=== PATIENT | male | born 1940 | race Caucasian/White ===

== ENCOUNTER → 2021-05-14 15:43 | Outpatient (CLI) | payer MEDICARE, SELFPAY ==
--- NOTE | 2021-05-14 15:58 | DI.RAD.S_ITS ---
PROCEDURE: XR KUB INDICATIONS: kidney stone TECHNIQUE: One view of the abdomen acquired. COMPARISON: None. FINDINGS: Surgical changes and devices: None. Bowel: Bowel gas pattern is normal. Soft tissues: Visualized solid organ contours appear normal in size. Bilateral dominant calcifications are seen, which are incompletely characterized. Multiple surgical clips projected over the inferior pelvis. Bones: No suspicious bony lesions. IMPRESSION: Bilateral abdominal calcification are present and cannot be further localized. If indicated, CT KUB could be performed for further assessment. Dictated by: Navin MEZA Interpreted: Mirza Mcneil MD on 05/14/2021 at 17:03 Transcribed by: DEMETRICE on 05/14/2021 at 17:04 Approved by: Mirza Mcneil M.D. on 05/14/2021 at 19:33
[2021-05-14 17:44] LABS: Blood Urea Nitrogen 16 mg/dL (9-20); Calcium 9.1 mg/dL (8.4-10.2); Carbon Dioxide 29 mmol/L (22-32); Chloride 105 mmol/L (98-107); Estimated Glomerular Filt Rate > 60.0 mL/min (>60); Glucose 125 mg/dL (80-110); HEMOLYSIS < 15 (0-50); Potassium 3.6 mmol/L (3.4-5.1); Sodium 142 mmol/L (137-145)
[2021-05-14 18:18] LABS: Prostate Specific Antigen < 0.064 ng/mL (0.10-4.00)
== END ==
PROVIDERS: PCP Internal Medicine; Referring Provider Specialist; Visit Provider Specialist
DX: N20.0 Calculus of kidney (principal); N20.1 Calculus of ureter; Z01.812 Encounter for preprocedural laboratory examination; R31.0 Gross hematuria; M54.50 Low back pain, unspecified
CPT/HCPCS: 36415; 51798; 74018; 80048; 81002; 84153; 99214

== ENCOUNTER → 2021-05-29 15:34 | Outpatient (CLI) | payer MEDICARE, SELFPAY ==
[2021-05-29 19:22] LABS: COVID19 -Nasal RAPID Negative (Negative)
== END ==
PROVIDERS: PCP Internal Medicine; Visit Provider Specialist
DX: Z20.822 Contact with and (suspected) exposure to COVID-19 (principal)
CPT/HCPCS: 87635; C9803

== ENCOUNTER 2021-05-30 08:16 | Day surgery (SDC) | payer MEDICARE, SELFPAY ==
[2021-05-29 09:48] VITALS: BMI 29.7
[2021-05-30] VITALS (8 sets, daily range): BP systolic 149–162; BP diastolic 83–89; PULSE 61–72; RESP 12–16; TEMP 36.6–37.3; O2SAT 92–98; BMI 29.7
--- NOTE | 2021-05-30 08:42 | PM.PREOP ---
Pre-operative Note COVID-19 COVID-19 status: Negative Result date/Date tested (Pos, Neg/Pending): 05/29/21 Interval Note History & Physical reviewed/Exam performed by Physician: Yes Changes to H&P: No
[2021-05-30] MEDS: LACTATED RINGERS 1,000 ML 42 ML IV (08:51)
[2021-05-30] MEDS: CIPROFLOXACIN 400 MG/200 ML PIGGYBACK 200 MG IV (09:50)
--- NOTE | 2021-05-30 09:58 | SUR.OPER ---
Supine on eswl BED. Patient [facility] eswl table [facility] head on pillow, arms positioned at patient's side. Legs are straight and feet uncrossed.
--- NOTE | 2021-05-30 10:53 | SUR.PHASEI ---
Received to PACU after general anesthesia. Airway patent, self maintained. Report received from Dr Eduardo and PRISCILA Hung. Pt has a pacemaker. Magnet was not used. Pacemaker does not need to be interrogated per Dr Eduardo. No paced beats noted. See rhythm strips.
--- NOTE | 2021-05-30 10:54 | PM.OP.1 ---
Operative Date/Time/Diagnoses Date of procedure: 05/30/21 Time of procedure: 10:54 Pre-op diagnosis: 1. 1.5 cm left renal pelvic calculus. 2. Left renal colic. 3. Intermittent gross hematuria. Post-op diagnosis: same Procedure & Clinicians Procedure: 1. Cystoscopy/placement left ureteral stent (7 Djiboutian by 22-32 cm multi-length). 2. Left extracorporeal shockwave lithotripsy (maximal power level 7.0 times 1800 shocks). Same procedure as scheduled: Yes Indications: 1. 1.5 cm left renal pelvic calculus. 2. Intermittent left renal colic. 3. Intermittent gross hematuria. Surgeon: Izabela Andrade Click Yes if Unassisted: Yes Anesthesia Type: General Operative Notes Findings: 1. Urethra-normal caliber without annular stricture or lesion. 2. External sphincter coapted with normal overlying urothelium. 3. Prostate-surgically absent. 4. Bladder-1+ trabeculation. Normal ureteral orifices bilaterally. Closure Type: not applicable Specimen(s): none sent Applied: other (Seven Djiboutian by 22-32 cm multi-length stent) Estimated Blood Loss (mL): 0 Blood products transfused: none Procedure in detail: Patient was positioned supine was administered general anesthesia. He was then repositioned semi lithotomy and the lower abdomen, genitalia, and groin were then prepped and draped in sterile fashion. The 22 Djiboutian panendoscope was then passed lower urinary tract with the findings as described above. A 0.35 hybrid guidewire was then advanced in left collecting system under direct and fluoroscopic guidance. Over this a 7 Djiboutian by 22-32 cm multi-length stent was selected and advanced over the wire, again under direct and fluoroscopic guidance. A RETRIEVAL LINE WAS LEFT ATTACHED. Patient was then repositioned supine and the above-described index calculus was localized in the X, Y, and Z planes. Lithotripsy was then commenced at minimal power level for 200 shocks. A 2 minute pause was then conducted. Lithotripsy was then resumed and the power level was gradually increased to a maximum of 7.0. Real localization was performed numerous times throughout the case as indicated. At 1800 shocks there was no visible evidence of remaining stone fragments. Treatment was halted. The patient was then awakened, transferred to [facility], and transferred recovery in stable condition. Complications: none Post-operative Condition: stable Disposition: PACU Plan for aftercare: Discharge home
== END 2021-05-30 11:40 | disposition home or self-care (01) ==
PROVIDERS: PCP Internal Medicine; Referring Provider Specialist; Visit Provider Specialist
PROC: (CPT 50590; principal; 2021-05-30 09:15)
PROC: (CPT 50590; 2021-05-30 09:15)
DX: N20.0 Calculus of kidney (principal); R31.0 Gross hematuria; Z85.46 Personal history of malignant neoplasm of prostate; M54.50 Low back pain, unspecified
CPT/HCPCS: 50590; 52332; J0744; J2250; J2704; J3010

== ENCOUNTER → 2021-06-12 10:24 | Outpatient (CLI) | payer MEDICARE, SELFPAY ==
--- NOTE | 2021-06-12 10:26 | DI.RAD.S_ITS ---
PROCEDURE: XR KUB INDICATIONS: calculus of kidney TECHNIQUE: One view of the abdomen acquired. COMPARISON: [facility], , XR KUB, 05/14/2021, 15:53. FINDINGS: Surgical changes and devices: Left ureteral stent has been placed. Right flank surgical sutures again noted. Multiple surgical clips again noted. Bowel: Bowel gas pattern is normal. Soft tissues: No suspicious abdominal calcifications. Visualized solid organ contours appear normal in size. Multiple calcifications projected over the left kidney, largest fragment measuring roughly 1 cm. Small calcifications projected over the inferior pole of the right kidney, largest fragment measuring roughly 4 mm. Right lower quadrant calcifications are again noted. Bones: No suspicious bony lesions. IMPRESSION: 1. Placement of left ureteral stent. 2. Calcifications projected over both the right and left kidneys. 3. Right lower quadrant calcifications again noted, largest measuring up to 1.4 cm. If indicated, CT KUB could be performed for further localization. Dictated by: Navin MEZA Interpreted: Kayley Judge MD on 06/12/2021 at 10:40 Transcribed by: TALYA on 06/12/2021 at 10:47 Approved by: Kayley Judge M.D. on 06/12/2021 at 12:54
== END ==
PROVIDERS: PCP Internal Medicine; Referring Provider Specialist; Visit Provider Specialist
DX: N20.0 Calculus of kidney (principal); Z96.0 Presence of urogenital implants
CPT/HCPCS: 74018; 99215

== ENCOUNTER → 2021-06-20 16:05 | Outpatient (CLI) | payer MEDICARE, SELFPAY ==
[2021-06-20 16:28] LABS: COVID19 -Nasal RAPID Negative (Negative)
== END ==
PROVIDERS: PCP Internal Medicine; Visit Provider Specialist
DX: Z20.822 Contact with and (suspected) exposure to COVID-19 (principal)
CPT/HCPCS: 87635; C9803

== ENCOUNTER 2021-06-23 11:00 | Day surgery (SDC) | payer MEDICARE, SELFPAY ==
[2021-06-19 09:20] VITALS: BMI 28.1
[2021-06-23] VITALS (10 sets, daily range): BP systolic 143–178; BP diastolic 73–92; PULSE 64–71; RESP 12–16; TEMP 36.4–36.8; O2SAT 90–96; BMI 28.1
--- NOTE | 2021-06-23 | DI.RAD.S_ITS ---
PROCEDURE: XR KUB INDICATIONS: Left renal calculi TECHNIQUE: One view of the abdomen acquired. COMPARISON: [facility], RG, CT L SPINE WITHOUT CONTRAST, 04/18/2021, 11:00. [facility], CR, XR KUB, 06/12/2021, 11:32. FINDINGS: Surgical changes and devices: Right ureterovesicular stent is present. Surgical clips are noted within the pelvis. Bowel: Bowel gas pattern is normal. Soft tissues: Areas of calcification are noted overlying the renal shadows, appearing similar compared to prior exam. However, it is noted that the larger calcification on the left appears to be near the ureterovesicular stent, compared to more peripherally on prior exam. Visualized solid organ contours appear normal in size. Bones: No suspicious bony lesions. IMPRESSION: Bilateral renal calculi with apparent change in location of the larger left ureteral calculus. Dictated by: Mary Grace Grigsby M.D. on 06/23/2021 at 14:23 Approved by: Mary Grace Grigsby M.D. on 06/23/2021 at 14:51
--- NOTE | 2021-06-23 | DI.RAD.S_ITS ---
PROCEDURE: XR ABDOMEN 1V COMPARISON: [facility], CR, XR KUB, 06/23/2021, 11:05. INDICATIONS: LT KIDNEY STONE REMOVE FINDINGS: 1 submitted fluoroscopic image demonstrates placement of a left guidewire which extends into the midpole of the left renal pelvis and a small amount of contrast media is been administered partially opacifying the collecting system. IMPRESSION: Retrograde passage of a guidewire with the submitted image demonstrating the guidewire projected over the mid pole of the left renal collecting system which is partially opacified. Dictated by: Navin Ernandez [facility] Interpreted: Mirza Mcneil MD on 06/23/2021 at 16:07 Approved by: Mirza Mcneil M.D. on 06/23/2021 at 16:59
[2021-06-23] MEDS: GABAPENTIN 300 MG CAPSULE PO (12:42)
[2021-06-23] MEDS: ACETAMINOPHEN IV 1,000 MG/100 ML VIAL 400 MG IV (12:43)
[2021-06-23] MEDS: LACTATED RINGERS 1,000 ML 42 ML IV (12:43)
--- NOTE | 2021-06-23 12:55 | PM.PREOP ---
Pre-operative Note Interval Note History & Physical reviewed/Exam performed by Physician: Yes Changes to H&P: No
[2021-06-23] MEDS: CIPROFLOXACIN 400 MG/200 ML PIGGYBACK 200 MG IV (13:01)
--- NOTE | 2021-06-23 13:58 | SUR.OPER ---
Lithotomy on padded OR bed, head on pillow, arms secured on padded arm boards at <90 degrees abduction. Legs secured in padded yellow fins stirrups.
[2021-06-23] MEDS: IOPAMIDOL 15 ML VIAL INJ (14:10)
--- NOTE | 2021-06-23 14:43 | P.OP_ITS ---
Operative Date/Time/Diagnoses Date of procedure: 06/23/21 Time of procedure: 14:43 Pre-op diagnosis: 1. Multiple left renal calculi. 2. Retained left ureteral stent. Post-op diagnosis: same Procedure & Clinicians Procedure: 1. Cystoscopy/left ureteroscopic intrarenal laser lithotripsy. 2. Cystoscopy/left ureteral stent exchange (6 Faroese by 22-32 cm multi-length. Same procedure as scheduled: Yes Indications: 1. Multiple left intrarenal calculi. 2. Retained left ureteral stent. 3. Status post first-stage left ESWL. Surgeon: Izabela Andrade Click Yes if Unassisted: Yes Anesthesia Type: General Operative Notes Findings: Multiple 4-5 mm left lower pole intrarenal fragments. Closure Type: not applicable Specimen(s): none sent Applied: other (Six Faroese by 22-32 multi-length ureteral stent) Estimated Blood Loss (mL): 0 Blood products transfused: none Procedure in detail: The patient was positioned supine was administered general anesthesia. He was then repositioned semi lithotomy and the lower abdomen, genitalia, and groin were then prepped and draped in sterile fashion. The 22 Faroese panendoscope was inserted lower urinary track. Foreign body grasper was then utilized to engage left ureteral stent the scope in distal in the stent was then withdrawn distal to the penile meatus. A 0.35 hybrid guidewire was then advanced the lumen of the indwelling stent and advanced proximally under fluoroscopic guidance. The and dwelling retained stent was then backloaded off the wire and discarded. Now a dual lumen ureteral access sheath was advanced over this wire under fluoroscopic guidance. A 2nd 0.35 hybrid guidewire was then advanced into the accessory channel of the dual-lumen ureteral access sheath advanced proximally under fluoroscopic guidance. The dual lumen ureteral access sheath was then backloaded off both wires. One wire was secured to the operative drape. The flexible ureteral scope was then advanced over the 2nd guidewire and was advanced proximally under fluoroscopic guidance. A solution of half-strength Isovue was then used to perform intrarenal pyelogram. Meticulous examination of each minor and major mihaela was then undertaken, starting at the upper pole and systematically moving to lower pole. And a generous lower pole calyx a collection of faceted calculus fragments were encountered. The 200 micron laser fiber was then/all operating room personnel and patient were fitted with laser safety eyewear. Lithotripsy was then commenced with excellent subsequent fragmentation of the stones down to approximately 1 mm size. Intrarenal retrograde pyelography was then performed again with meticulous examination of each of the major and minor calices from superior pole and lower pole. Numerous fragments and Zully remained in the aforementioned generous lower pole calyx. The flexible ureteral scope was then removed. The 22 Faroese panendoscope was then front loaded on the remaining 0.35 hybrid guidewire. A 6 Faroese by 22-32 cm multi-length stent was then advanced over the wire proximally under direct and fluoroscopic guidance. A RETRIEVAL LINE WAS LEFT ATTACHED. The bladder is then drained completely and all instrumentation was removed a final time. The patient was then repositioned supine, was awakened, and transferred to [facility] in stable condition. Complications: none Post-operative Condition: stable Disposition: PACU Plan for aftercare: Home
[2021-06-23] MEDS: FUROSEMIDE 20 MG/2 ML VIAL IV (15:10)
--- NOTE | 2021-06-23 16:34 | SUR.PHASEII ---
06/23/2021-1615 1615-completed home care instructions with patient,verbalized understgandin . voided x3 in restroom-qs post lasix-clear light pink. strained-no stones seen. vss. iv out. dressing self. to move car. Given strainers and specimen cup in case stones seen at home.gait steady/independent in unit. 1630-Discharged per w/chair to wifes care/car with specimen cup/strainer/paperwork and all belongings. Spoke to on picking up RX at pharmacy.
== END 2021-06-23 16:30 | disposition home or self-care (01) ==
PROVIDERS: PCP Internal Medicine; Referring Provider Specialist; Visit Provider Specialist
PROC: 0TF78ZZ Fragmentation in Left Ureter, Via Natural or Artificial Opening Endoscopic (ICD-10-PCS; CPT 52353; principal; 2021-06-23 11:45)
DX: N20.0 Calculus of kidney (principal); Z96.0 Presence of urogenital implants; I10 Essential (primary) hypertension; Z95.0 Presence of cardiac pacemaker; Z95.1 Presence of aortocoronary bypass graft
CPT/HCPCS: 52356; 74018; 76000; 82962; C1771; J0131; J0330; J0744; J1100; J1940; J2405; J2704

== ENCOUNTER → 2021-09-05 10:57 | Outpatient (CLI) | payer MEDICARE, SELFPAY ==
--- NOTE | 2021-09-05 10:59 | DI.RAD.S_ITS ---
PROCEDURE: XR KUB INDICATIONS: possible calculus of kidney TECHNIQUE: One view of the abdomen acquired. COMPARISON: [facility], CR, XR ABDOMEN 1V, 06/23/2021, 15:00. [facility], CR, XR KUB, 06/12/2021, 11:32. [facility], CR, XR KUB, 06/23/2021, 11:05. FINDINGS: Surgical changes and devices: Previously seen left ureteral stent is no longer visualized . Multiple surgical clips in the pelvis, unchanged. Bowel: Bowel gas pattern is nonobstructive. Soft tissues: No abnormal pelvic calcifications. Persistent calcifications project over the lower aspect of the right renal shadow possibly representing right-sided nephrolith. It measures approximately 6 mm. Multiple punctate calcifications projecting over the left renal shadow have decreased significantly in size and number. There is 1 residual punctate calcification projecting over the lower left renal shadow measuring approximately 3 mm size. No other suspicious abdominal calcifications. Visualized solid organ contours appear normal in size. Bones: No suspicious bony lesions. IMPRESSION: 1. Abdomen without acute radiographic abnormalities. 2. Possible 6 mm right renal calculus. 3. Previously seen calcifications projecting over the left renal shadow have decreased substantially in number. There is an apparent 3 mm residual calcification projecting over the lower aspect of the left renal shadow which may represent a small nephrolith. Dictated by: Cornelio Elena M.D. on 09/05/2021 at 13:49 Approved by: Cornelio Elena M.D. on 09/05/2021 at 13:54
[2021-09-05 12:41] LABS: Calcium 9.4 mg/dL (8.4-10.2); Uric Acid 7.8 mg/dL (3.5-8.5)
[2021-09-05 13:15] LABS: Prostate Specific Antigen < 0.064 ng/mL (0.10-4.00)
[2021-09-06 08:45] LABS: Parathyroid Hormone Int 56 pg/mL (15-65)
== END ==
PROVIDERS: PCP Internal Medicine; Referring Provider Specialist; Visit Provider Specialist
DX: R97.20 Elevated prostate specific antigen [PSA] (principal); N20.0 Calculus of kidney
CPT/HCPCS: 36415; 74018; 82310; 83970; 84153; 84550

== ENCOUNTER → 2021-09-10 11:12 | Outpatient (CLI) | payer MEDICARE, SELFPAY ==
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
== END ==
PROVIDERS: PCP Internal Medicine; Referring Provider Physical Medicine & Rehabilitation; Visit Provider Physical Medicine & Rehabilitation
DX: M77.32 Calcaneal spur, left foot (principal); M47.27 Other spondylosis with radiculopathy, lumbosacral region
CPT/HCPCS: 73620; 99214

== ENCOUNTER → 2022-10-28 14:17 | Outpatient (CLI) | payer MEDICARE, SELFPAY ==
--- NOTE | 2022-10-28 14:18 | DI.RAD.S_ITS ---
PROCEDURE: XR KUB INDICATIONS: kidney stones TECHNIQUE: One view of the abdomen acquired. COMPARISON: [facility], CR, XR KUB, 09/05/2021, 10:54. [facility], CR, XR KUB, 06/23/2021, 11:05. FINDINGS: Surgical changes and devices: Surgical clips overlying the pelvic inlet. Bowel: Bowel gas pattern is normal. Soft tissues: Calcifications project over the right flank, including a 1.4 cm calcification may be within the right proximal ureter. 0.4 cm calcification projects over the inferior pole of the left kidney. Bones: No suspicious bony lesions. IMPRESSION: Possible 1.4 cm calcification within the proximal right ureter. Alternatively, this could be fecalith. Correlate with symptoms and consider CT for confirmation. Dictated by: Brannon Blood M.D. on 10/28/2022 at 16:10 Approved by: Brannon Blood M.D. on 10/28/2022 at 16:17
== END ==
PROVIDERS: PCP Internal Medicine; Referring Provider Specialist; Visit Provider Specialist
DX: N20.0 Calculus of kidney (principal)
CPT/HCPCS: 74018

== ENCOUNTER → 2022-10-29 15:21 | Outpatient (CLI) | payer MEDICARE, SELFPAY ==
--- NOTE | 2022-10-29 15:22 | DI.CT.S_ITS ---
PROCEDURE: CT KIDNEY URETER BLADDER (KUB) INDICATIONS: right renal calculus TECHNIQUE: Axial sections were acquired from the lung bases to the pubic symphysis. Coronal and sagittal reformats were performed. For radiation dose reduction, the following was used: automated exposure control, adjustment of mA and/or kV according to patient size. COMPARISON: [facility], RG, CT L SPINE WITHOUT CONTRAST, 04/18/2021, 11:00. [facility], CR, XR KUB, 06/23/2021, 11:05. [facility], CR, XR KUB, 09/05/2021, 10:54. [facility], CR, XR KUB, 10/28/2022, 14:14. FINDINGS: Image quality: Excellent. Lung bases: Lung bases are clear. Heart size is normal. Solid organs: Liver: The liver has no mass or intrahepatic biliary ductal dilatation. The portal vein and hepatic veins are patent. Biliary: Gallbladder contains a small stone. No wall thickening or pericholecystic fluid. Pancreas: The pancreas has no mass or ductal dilatation. There is no surrounding inflammation. Spleen: Normal size. There are no masses. 1.5 cm cyst of the inferior pole of the spleen. Adrenals: No hypertrophy or nodules. Kidneys: 1.5 cm stone at the UPJ. No hydronephrosis. There is inflammation and thickening around the stone. No solid mass. The left kidney has an exophytic simple cyst off the inferior pole. Peritoneum and bowel: Moderate-sized hiatal hernia. The small bowel has a normal caliber and appearance. Status post right colectomy. The large bowel has otherwise is normal caliber with no mass or wall thickening. No free fluid or air. Nodes and vessels: No retroperitoneal or mesenteric adenopathy by size criteria. The aorta has atherosclerosis with no aneurysmal dilatation. Miscellaneous: Fat containing right inguinal hernia. PELVIS: Genitourinary: The bladder has no wall thickening or mass. No bladder calcifications. Bones: No suspicious bony lesions. No vertebral body compression fractures. IMPRESSION: 1. 1.5 cm stone at the right UPJ with surrounding ureteral thickening and inflammation. 2. Moderate-sized hiatal hernia. 3. Fat containing right inguinal hernia. Dictated by: Edd Vega M.D. on 10/29/2022 at 15:48 Approved by: Edd Vega M.D. on 10/29/2022 at 15:56
== END ==
PROVIDERS: PCP Internal Medicine; Referring Provider Specialist; Visit Provider Specialist
DX: N20.0 Calculus of kidney (principal); K44.9 Diaphragmatic hernia without obstruction or gangrene; K40.90 Unilateral inguinal hernia, without obstruction or gangrene, not specified as recurrent; Z87.442 Personal history of urinary calculi
CPT/HCPCS: 74176; 99215

== ENCOUNTER 2022-11-02 09:05 | Day surgery (SDC) | payer MEDICARE, SELFPAY ==
[2022-11-02] VITALS (10 sets, daily range): BP systolic 127–184; BP diastolic 78–105; PULSE 60–63; RESP 12–16; TEMP 35.9–36.8; O2SAT 94–98; BMI 27.3
--- NOTE | 2022-11-02 | DI.RAD.S_ITS ---
PROCEDURE: XR ABDOMEN 1V INDICATIONS: RT STENT PLACEMENT TECHNIQUE: Right-sided intra-operative images acquired by the Urology service. COMPARISON: [facility], CR, XR ABDOMEN 1V, 06/23/2021, 15:00. FINDINGS: Fluoroscopic guidance utilized for a right-sided nephroureteral stent placement. IMPRESSION: Fluoroscopic guidance. Dictated by: Brannon Blood M.D. on 11/02/2022 at 14:09 Approved by: Brannon Blood M.D. on 11/02/2022 at 14:09
[2022-11-02] MEDS: LACTATED RINGERS 1,000 ML 84 ML IV (09:47)
--- NOTE | 2022-11-02 10:57 | PM.PREOP ---
Pre-operative Note COVID-19 Criteria for continued procedure: Expected advancement of disease process, Continuing or worsening of significant or severe pain, Deterioration of the patient's condition or overall health, Delay expected to result in less-positive ultimate med/surg outcome and Non-surgical alternatives not available or appropriate per current SOC Interval Note History & Physical reviewed/Exam performed by Physician: Yes Changes to H&P: No
--- NOTE | 2022-11-02 11:43 | SUR.OPER ---
Lithotomy on padded OR bed, head on pillow, arms secured on padded arm boards at <90 degrees abduction. Legs secured in padded yellow fins stirrups.
[2022-11-02] MEDS: CIPROFLOXACIN 400 MG/200 ML PIGGYBACK 200 MG IV (11:47)
--- NOTE | 2022-11-02 12:02 | PM.OP.1 ---
Operative Date/Time/Diagnoses Date of procedure: 11/02/22 Time of procedure: 11:45 Pre-op diagnosis: 1. Obstructing 1.4 cm right ureteropelvic junction calculus. 2. Right renal colic. Post-op diagnosis: same Procedure & Clinicians Procedure: 1. Cystoscopy/right ureteral stone manipulation without removal. 2. Cystoscopy/placement right ureteral stent. Same procedure as scheduled: Yes Indications: 1. Obstructing 1.4 cm right ureteropelvic junction calculus. 2. Right renal colic. Surgeon: Izabela Andrade Click Yes if Unassisted: Yes Anesthesia Type: General Operative Notes Findings: 1. Urethra-normal caliber without annular stricture or lesion. 2. External sphincter-coapted with normal overlying urothelium. 3. Prostate-surgically absent. 4. Bladder-1+ trabeculation. Normal ureteral orifices bilaterally. Following manipulation of the right ureteropelvic junction calculus with hybrid guidewire modest obstructive efflux was seen emitting from the orifice. Closure Type: not applicable Specimen(s): none sent Applied: other (Seven Algerian by 22-32 cm multi-length stent.) Estimated Blood Loss (mL): 0 Blood products transfused: none Procedure in detail: Patient was positioned in supine was administered general anesthesia. He was then repositioned in semi-lithotomy and the lower abdomen, genitalia, and groin were then prepped and draped in sterile fashion. Twenty-two Algerian panendoscope was then passed the lower urinary tract with the findings as described a 0.35 hybrid guidewire was then selected and advanced into the right ureteral orifice and advanced proximally under direct and fluoroscopic guidance. The stone was seen to dislodge and we will retrograde into the central renal pelvis. Next, a 7 Algerian by 22-32 cm multilink stent was requested. This was advanced over the hybrid guidewire under direct and fluoroscopic guidance. NO RETRIEVAL LINE WAS LEFT ATTACHED. The bladder was then drained and the oneill endoscope was removed. The patient was then repositioned in supine, was awakened, transferred to [facility], and transported to PACU awake and in stable condition. Complications: none Post-operative Condition: stable Disposition: PACU Plan for aftercare: Discharge home.
== END 2022-11-02 13:08 | disposition home or self-care (01) ==
PROVIDERS: PCP Internal Medicine; Referring Provider Specialist; Visit Provider Specialist
PROC: (CPT 52330; principal; 2022-11-02 10:00)
DX: N20.1 Calculus of ureter (principal)
CPT/HCPCS: 52330; 52332; 36415; 74018; 76000; J0744; J1885; J2704

== ENCOUNTER 2022-11-24 08:09 | Day surgery (SDC) | payer MEDICARE, SELFPAY ==
[2022-11-24] VITALS (8 sets, daily range): BP systolic 99–164; BP diastolic 56–89; PULSE 59–82; RESP 10–18; TEMP 35.8–36.3; O2SAT 68–98; BMI 27.3
--- NOTE | 2022-11-24 08:23 | PM.PREOP ---
Pre-operative Note COVID-19 Criteria for continued procedure: Expected advancement of disease process, Possibility delay results in more complex future surgery or treatment, Increased loss of function, Continuing or worsening of significant or severe pain, Deterioration of the patient's condition or overall health, Delay expected to result in less-positive ultimate med/surg outcome and Non-surgical alternatives not available or appropriate per current SOC Interval Note History & Physical reviewed/Exam performed by Physician: Yes Changes to H&P: No
[2022-11-24] MEDS: LACTATED RINGERS 1,000 ML 42 ML IV ×2 (08:41→09:45)
--- NOTE | 2022-11-24 09:07 | SUR.OPER ---
Supine on ESWL table, head on pillow, arms padded with gel pads and tucked at sides, legs uncrossed, Gel pad under lower legs/heels. Warm blankets placed to entire body and wrapped around head.
[2022-11-24] MEDS: CEFAZOLIN 2 GM/100 ML PREMIX 100 ML IV (09:28)
[2022-11-24] MEDS: FUROSEMIDE 40 MG/4 ML VIAL 20 MG IV (10:14)
[2022-11-24] MEDS: OXYCODONE IR 5 MG TABLET PO (10:35)
[2022-11-24] MEDS: ONDANSETRON 4 MG/2 ML INJ IV (10:51)
--- NOTE | 2022-11-24 10:54 | SUR.PHASEII ---
Patient vomited. Medicated with Zofran, bedding cleaned.
--- NOTE | 2022-11-26 14:56 | P.OP_ITS ---
Operative Date/Time/Diagnoses Date of procedure: 11/24/22 Time of procedure: 09:30 Pre-op diagnosis: 1. 1.7 cm obstructing right ureteropelvic junction calculus and nonobstructing 6 mm right lower pole calculus. 2. Retained right ureteral stent. Post-op diagnosis: same Procedure & Clinicians Procedure: 1. Right extracorporeal shockwave lithotripsy (maximal power level 7.0 x 2500 shocks)/. 2. Cystoscopy/removal right ureteral stent. Same procedure as scheduled: Yes Indications: 1. 1.7 cm obstructing right ureteropelvic junction calculus and 6 mm nonobstructing right lower calculus. 2. Retained right ureteral stent. Surgeon: Izabela Andrade Click Yes if Unassisted: Yes Anesthesia Type: General Operative Notes Findings: Index calculus and stent unchanged in position verses preoperative imaging. Closure Type: not applicable Specimen(s): none sent Estimated Blood Loss (mL): 0 Blood products transfused: none Procedure in detail: Patient was positioned in supine was administered general anesthesia. The above-described index calculus was the localized in X, Y, and Z plane. Lithotripsy was then commenced at minimal power level for total 200 shocks. A 2 minute pause was then conducted. Lithotripsy was then resumed and the power level was then gradually increased to a maximum of 7.0. The stone fragments were really localize as needed throughout the case. The stone readily fragmented. Comminution was significant enough that proximally 500 additional shocks were available to treat the 6 mm right lower pole calculus. A 2500 shocks treatment was halted. The patient was then repositioned in semi- lithotomy and the lower abdomen, genitalia, and groin were then prepped and draped in sterile fashion. The 22 Italian panendoscope was then passed the lower urinary tract with findings of surgically absent prostate otherwise u nremarkable. The field of view within the bladder was obscured by treatment related hemorrhage suspended in the urine. The distal coil of the right ureteral stent was visualized, engaged with an alligator tooth foreign body grasper and removed from the urinary tract without difficulty. The patient was then repositioned in supine, was awakened, and then was transported recovery in stable condition. Complications: none Post-operative Condition: stable Disposition: PACU Plan for aftercare: Discharge home.
== END 2022-11-24 12:01 | disposition home or self-care (01) ==
PROVIDERS: PCP Internal Medicine; Referring Provider Specialist; Visit Provider Specialist
PROC: (CPT 50590; principal; 2022-11-24 09:15)
PROC: (CPT 50590; 2022-11-24 09:15)
DX: N20.2 Calculus of kidney with calculus of ureter (principal)
CPT/HCPCS: 50590; 52310; J0690; J1100; J1940; J2405; J2704; J3010

== ENCOUNTER → 2022-12-08 11:36 | Outpatient (CLI) | payer MEDICARE, SELFPAY ==
--- NOTE | 2022-12-08 11:38 | DI.RAD.S_ITS ---
PROCEDURE: XR KUB INDICATIONS: kidney calculus TECHNIQUE: One view of the abdomen acquired. COMPARISON: [facility], CT, CT KIDNEY URETER BLADDER (KUB), 10/29/2022, 15:28. [facility], CR, XR KUB, 10/28/2022, 14:14. FINDINGS: Surgical changes and devices: None. Bowel: Bowel gas pattern is normal. Soft tissues: 1.4 centimeter calcific density projects over the medial aspect of the right lower abdomen may represent right-sided renal stone previously identified by CT. 2 millimeter calcific densities project over the left renal shadow. Visualized solid organ contours appear normal in size. Multiple surgical clips project over the lower pelvis. Bones: No suspicious bony lesions. IMPRESSION: Possible 1.4 centimeter right renal stone versus radiodense material in bowel. Consider CT scan gave the for additional evaluation if clinically indicated. Multiple 2 millimeter left renal stones. Dictated by: Christina Messina MD, PhD on 12/08/2022 at 13:40 Approved by: Christina Messina MD, PhD on 12/08/2022 at 13:42
== END ==
PROVIDERS: PCP Internal Medicine; Referring Provider Specialist; Visit Provider Specialist
DX: N20.0 Calculus of kidney (principal)
CPT/HCPCS: 74018

== ENCOUNTER → 2023-11-15 10:15 | Outpatient (CLI) | payer MEDICARE, SELFPAY ==
--- NOTE | 2023-11-15 10:18 | DI.RAD.S_ITS ---
PROCEDURE: XR LUMBAR SPINE MIN 4V INDICATIONS: BACK PAIN TECHNIQUE: 5 views of the lumbar spine were acquired, including bilateral oblique views. COMPARISON: [facility], CT, CT KIDNEY URETER BLADDER (KUB), 10/29/2022, 15:28. FINDINGS: Bones: 5 nonrib-bearing vertebrae are present. There is normal bony alignment. No acute vertebral body compression fractures. No suspicious bony lesions. Moderate multilevel lumbar spondylosis with degenerative endplate changes, disc space loss, and endplate osteophyte formation. Findings are most pronounced at L2-3, L3-4, L4-5, and L5-S1. Advanced mid and lower lumbar facet arthropathy. Soft tissues: Overlying bowel gas pattern is normal. No suspicious soft tissue calcifications. Multiple surgical clips noted in the lower pelvis. Oblique images: No pars defects. IMPRESSION: Lumbar spine without acute osseous abnormalities. Moderate multilevel lumbar spondylosis and facet arthropathy, not significantly changed. Dictated by: Cornelio Elena M.D. on 11/15/2023 at 11:23 Approved by: Cornelio Elena M.D. on 11/15/2023 at 11:26
== END ==
PROVIDERS: PCP Internal Medicine; Referring Provider Physical Medicine & Rehabilitation; Visit Provider Physical Medicine & Rehabilitation
DX: M47.27 Other spondylosis with radiculopathy, lumbosacral region (principal); M47.26 Other spondylosis with radiculopathy, lumbar region
CPT/HCPCS: 72110; 99214

== ENCOUNTER → 2024-01-17 13:13 | Outpatient (CLI) | payer MEDICARE, SELFPAY ==
--- NOTE | 2024-01-17 13:15 | DI.RAD.S_ITS ---
PROCEDURE: XR KNEE LT 3V INDICATIONS: LEFT KNEE PAIN TECHNIQUE: 3 views of the knee were acquired. COMPARISON: None. FINDINGS: Bones: No fractures or dislocations. Mild tricompartmental osteoarthritis is seen most notably in medial femoral tibial compartment with joint space narrowing and subchondral sclerosis. No suspicious bony lesions. Soft tissues: Moderate suprapatellar joint effusion. No suspicious soft tissue calcifications. IMPRESSION: No acute left knee fracture or dislocation. Moderate suprapatellar joint effusion. Mild tricompartmental osteoarthritis. Dictated by: Kel Ram M.D. on 01/17/2024 at 14:05 Approved by: Kel Ram M.D. on 01/17/2024 at 14:06
== END ==
PROVIDERS: PCP Internal Medicine; Referring Provider Physical Medicine & Rehabilitation; Visit Provider Physical Medicine & Rehabilitation
DX: M17.12 Unilateral primary osteoarthritis, left knee (principal); M25.462 Effusion, left knee; M25.562 Pain in left knee
CPT/HCPCS: 73562